=== PATIENT | female | born 1950 | race Caucasian/White ===

== ENCOUNTER 2017-01-20 17:35 | Emergency (ER) | payer MEDICARE ==
[~2017-01-20 17:35] MED LIST: EXFORGE1 TAB PO; FLONASE NAS; L20 PO; LISINOPRIL40 MG PO; MOBIC15 MG PO; PRILO PO; ZYRTEC ALLGY10 MG PO
== END 2017-01-20 18:31 | disposition home or self-care (01) ==
LOC: ER 17:35
DX: M25.552 Pain in left hip (principal); I10 Essential (primary) hypertension; E11.9 Type 2 diabetes mellitus without complications; W01.0XXA Fall on same level from slipping, tripping and stumbling without subsequent striking against object, initial encounter; Y92.002 Bathroom of unspecified non-institutional (private) residence as the place of occurrence of the external cause
CPT/HCPCS: 72192; 73502-LT; 96372; 99284